=== PATIENT | female | born 1945 | race Caucasian/White ===

== ENCOUNTER → 2016-04-14 | Outpatient (CLI) | payer OTHER ==
[~2016-04-14] MED LIST: ATOR-26 PO; CRDCD300 PO; DILT-117 PO; EZET10TA63 PO; GLIM2TAB2 PO; HYZ/10015 PO; LEVO125T72 PO; METO1TAB69 PO; METO50TA16 PO; OXYB5TAB PO; SIMV40TA2 PO; SYN125 PO
[2016-04-14 12:25] LABS: BASO % 0.1 %; BASO ABS # 0.01 K/uL (0-0.2); COMPLETE YES; EOS % 2.5 %; HEMATOCRIT 40.7 % (37-47); IG% 0.3 %; LYMPH ABS # 1.59 K/uL (1.2-3.4); MEAN CELL VOLUME 86.4 fL (80-100); MEAN CORPUSCULAR HEMOGLOBIN 29.1 pg (25-34); MEAN CORPUSCULAR HGB CONC 33.7 g/dl (32-36); MEAN PLATELET VOLUME 9.6 fL (7.4-10.4); NEUT % 67.1 %; PLATELET COUNT 319 K/uL (130-400); RED BLOOD COUNT 4.71 M/uL (4.2-5.4); WHITE BLOOD COUNT 7.24 K/uL (4.8-10.8)
[2016-04-14 12:30] LABS: URINE APPEARANCE CLEAR (CLEAR); URINE BILIRUBIN NEG (NEG); URINE COLOR YELLOW; URINE EPITHELIAL CELL AUTO 20-30 /lpf (0-5); URINE NITRITE NEG (NEG); URINE PH 5.5 (4.5-7.5); URINE SPECIFIC GRAVITY 1.022 (1.000-1.030); UROBILINOGEN NEG (NEG)
[2016-04-14 12:39] LABS: ALT/SGPT 54 U/L (12-78); AST/SGOT 32 U/L (15-37); BLOOD UREA NITROGEN 26 mg/dl (7-18); BUN/CREATININE RATIO 20.3 (10-20); CALCIUM 9.7 mg/dl (8.5-10.1); CARBON DIOXIDE 27 mmol/L (21-32); CHLORIDE 102 mmol/L (98-107); CHOLESTEROL 145 mg/dl (0-200); GLUCOSE 152 mg/dl (70-99); POTASSIUM 3.7 mmol/L (3.5-5.1); SODIUM 138 mmol/L (136-145)
[2016-04-14 12:42] LABS: ESTIMATED AVERAGE GLUCOSE 160 mg/dl; HA1C FLAG Normal (Normal)
[2016-04-14 12:45] LABS: MANUAL MICROSCOPIC REQUIRED? NO; REVIEW REQ? NO
[2016-04-14 12:50] LABS: CHOLESTEROL/HDL RATIO 3.6; HDL CHOLESTEROL 40 mg/dl; LDL CHOLESTEROL CALCULATED 49 mg/dl; TRIGLYCERIDES 282 mg/dl (0-150); URIC ACID 5.6 mg/dl (2.6-7.2); VERY LOW DENSITY LIPOPROT CALC 56 mg/dl
== END | disposition home or self-care (01) ==
LOC: C.LABBFT 10:15
PROVIDERS: ATTEND Internal Medicine
DX: E11.9 Type 2 diabetes mellitus without complications (principal)

== ENCOUNTER 2016-05-09 11:58 | Emergency (ER) | payer OTHER ==
[~2016-05-09] VITALS: Ht 162.6 cm; Wt 72.0 kg
[~2016-05-09 11:58] MED LIST changes: -DILT-117 PO; -LEVO125T72 PO; -METO50TA16 PO; -SIMV40TA2 PO
[2016-05-09 12:03] VITALS: TEMP 36.6; Ht 162.6 cm; Wt 72.0 kg
[2016-05-09] MEDS ORDERED: LEVO125T72 PO (12:57)
[2016-05-09] MEDS ORDERED: SIMV40TA2 PO (12:57)
[2016-05-09] MEDS ORDERED: DILT-117 PO (12:57)
[2016-05-09] MEDS ORDERED: METO50TA16 PO (12:57)
--- NOTE | 2016-05-09 13:55 | DIAGNOSTIC IMAGING REPORT ---
ULTRASOUND LEFT LOWER EXTREMITY VENOUS CLINICAL HISTORY: Left thigh pain. COMPARISON STUDY: No priors. TECHNIQUE: Real-time, grayscale, and color Doppler sonography of the deep veins of the left lower extremity was performed from the inguinal crease to the calf. Compression and augmentation were utilized. FINDINGS: There is no sonographic evidence of deep venous thrombosis identified in the left lower extremity. The common femoral, superficial femoral, and popliteal veins are patent and normally compressible. The greater saphenous vein and the profunda femoris vein at the junction with the common femoral vein are clear. The visualized calf veins are patent. IMPRESSION: There is no sonographic evidence of deep venous thrombosis identified in the left lower extremity. Electronically signed by: Ishan Lynn M.D. 05/09/2016 1:53 PM Dictated Date/Time: 05/09/2016 1:53 PM
[2016-05-09 14:33] VITALS: BP 169/91; PULSE 57; O2SAT 97
--- NOTE | 2016-05-09 17:25 | EMERGENCY ROOM VISIT NOTE ---
History First contact with patient: 12:11 Chief Complaint: LEG PAIN,LEG INJURY Stated Complaint: LEFT LEG PAIN IN VEINS History of Present Illness The patient is a 70 year old white female who presents to the Emergency Room with complaints of left posterior leg pain that began yesterday. She denies any known injury. Pain extends from the proximal calf to the mid thigh. She is worried about a DVT. 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 She denies any redness, warmth, coolness, or swelling. No prior history of similar discomfort. No symptoms on the right leg. She denies any shortness of breath. She has had no recent airline travel or long trips. No treatment yet. No other complaints. Review of Systems REVIEW OF SYSTEM: HEENT: No dizziness, visual problems, hearing loss, or tinnitus. There is no difficulty swallowing and no oral lesions are present. LYMPH: No adenopathy. PULMONARY: No cough, shortness of breath, sputum production or hemoptysis. CARDIOVASCULAR: No chest pain, palpitations, shortness of breath or peripheral edema. GASTROINTESTINAL: No diarrhea, constipation, nausea, vomiting, or abdominal pain. GENITOURINARY: No dysuria, frequency, urgency or nocturia. NEUROLOGIC: No weakness, muscle tenderness, epilepsy or history of neurological problems. MUSCULOSKELETAL: No history of joint tenderness/swelling. Positive history of arthritis and arthralgias. SKIN: No rashes or lesions. ENDOCRINE: Positive history of diabetes and hypothyroidism Past Medical/Surgical History Previous surgeries: Vein stripping Medical history: Significant for osteoarthritis, hypertension, diabetes, hypothyroidism, incontinence Family History Noncontributory. Social History Smoking Status: Never Smoker Smokeless Tobacco Use: No Drug Use: none Marital Status: Housing Status: lives alone Occupation Status: retired Current/Historical Medications Scheduled Diltiazem Hcl Ext Rel (Tiazac), 300 MG PO DAILY Ezetimibe (Zetia), 10 MG PO DAILY Glimepiride (Glimepiride), 2 MG PO DAILY Hctz/Losartan (Hyzaar 25MG/100MG), 1 TAB PO DAILY Levothyroxine Sodium (Synthroid), 125 MCG PO DAILY Metoprolol Tartrate (Lopressor) (Lopressor), 50 MG PO BID Oxybutynin Chloride (Oxybutynin Chloride Er), 5 MG PO DAILY Simvastatin (Zocor), 40 MG PO QPM Allergies Coded Allergies: No Known Allergies (Unverified , 01/17/13) Physical Exam Vital Signs Date Time Temp Pulse Resp B/P Pulse Ox O2 Delivery O2 Flow Rate FiO2 05/09/16 14:33 57 18 169/91 97 Room Air 05/09/16 13:31 57 16 174/68 97 Room Air 05/09/16 12:03 36.6 59 20 187/96 96 Room Air Physical Exam Gen.: Well-developed, well-nourished, elderly white female, in no acute distress. Laying on a bed. Alert and oriented. Skin:Warm and dry with fair turgor. No rashes or lesions. No ecchymosis or erythema, specifically on the leg. It is not any more warm than the other side. The patient is not diaphoretic. No abrasions. Varicosities are present on the inner aspect of the left leg. Musculoskeletal: Patient has intact motor function to the toes, ankle, knee, and hip. No pain with Homans testing. She does have discomfort with palpation over the medial hamstring bundle, hamstring muscle belly, and popliteal fossa. Neurologic: Gross sensation is intact across the left leg by soft touch. Peripheral pulses are 2+. Medical Decision & Procedures ER Provider Diagnostic Interpretation: Ultrasound obtained today of the left lower extremity was read by radiology as negative for DVT. ED Course Patient was educated regarding today's findings. Conservative care measures were discussed. Ultrasound was obtained and was negative. Patient likely strained her hamstring. She may use warm moist compresses on the area as needed. Gentle stretching daily. Tylenol and ibuprofen every 6 hours as needed for discomfort. Follow-up with her PCP if symptoms are not improving for reevaluation and possible physical therapy referral. Return to the ED for any other concerns. Medical Decision Possibility of DVT, muscle strain, tendon injury, and radiculopathy from her lumbar spine were considered, among others. Impression Primary Impression: Leg pain, left Departure Information Dispostion Home / Self-Care Forms HOME CARE DOCUMENTATION FORM, TYLENOL USE, IMPORTANT VISIT INFORMATION Patient Instructions My [facility] [employer] Additional Instructions Gentle stretching daily Warm moist compresses to the hamstring several times per day may improve your comfort Tylenol every 6 hours as needed for discomfort Add ibuprofen 200 mg or 400 mg every 6 hours as needed, with food Follow-up with your PCP for physical therapy referral if symptoms persist Return to the ED for any other concerns
== END 2016-05-09 14:36 | disposition home or self-care (01) ==
LOC: C.EDB 11:59 → C.EDC 14:36
DX: M79.605 Pain in left leg (principal); E11.9 Type 2 diabetes mellitus without complications; I10 Essential (primary) hypertension; M19.90 Unspecified osteoarthritis, unspecified site; E03.9 Hypothyroidism, unspecified; Z98.890 Other specified postprocedural states; Z79.84 Long term (current) use of oral hypoglycemic drugs; Z79.899 Other long term (current) drug therapy

== ENCOUNTER → 2016-07-16 | Outpatient (CLI) | payer OTHER ==
[~2016-07-16] MED LIST changes: -ATOR-26 PO; -CRDCD300 PO; +DILT-117 PO; +LEVO125T72 PO; -METO1TAB69 PO; +METO50TA16 PO; +SIMV40TA2 PO; -SYN125 PO
[2016-07-16 11:17] LABS: ESTIMATED AVERAGE GLUCOSE 154 mg/dl; HA1C FLAG Normal (Normal)
== END | disposition home or self-care (01) ==
LOC: C.LAB1850 09:11
PROVIDERS: ATTEND Internal Medicine
DX: E11.9 Type 2 diabetes mellitus without complications (principal)

== ENCOUNTER → 2016-10-16 | Outpatient (CLI) | payer OTHER ==
[2016-10-16 12:16] LABS: BASO % 0.2 %; BASO ABS # 0.01 K/uL (0-0.2); COMPLETE YES; EOS % 3.5 %; HEMATOCRIT 42.3 % (37-47); IG% 0.2 %; LYMPH ABS # 1.36 K/uL (1.2-3.4); MEAN CELL VOLUME 89.6 fL (80-100); MEAN CORPUSCULAR HEMOGLOBIN 28.4 pg (25-34); MEAN CORPUSCULAR HGB CONC 31.7 g/dl (32-36); MEAN PLATELET VOLUME 9.8 fL (7.4-10.4); MONO % 9.4 %; NEUT % 61.7 %; PLATELET COUNT 281 K/uL (130-400); RED BLOOD COUNT 4.72 M/uL (4.2-5.4); WHITE BLOOD COUNT 5.45 K/uL (4.8-10.8)
[2016-10-16 12:37] LABS: ALT/SGPT 30 U/L (12-78); AST/SGOT 23 U/L (15-37); BLOOD UREA NITROGEN 21 mg/dl (7-18); BUN/CREATININE RATIO 17.7 (10-20); CALCIUM 10.2 mg/dl (8.5-10.1); CARBON DIOXIDE 28 mmol/L (21-32); CHLORIDE 106 mmol/L (98-107); CHOLESTEROL 164 mg/dl (0-200); GLUCOSE 137 mg/dl (70-99); POTASSIUM 3.9 mmol/L (3.5-5.1); SODIUM 141 mmol/L (136-145); TRIGLYCERIDES 264 mg/dl (0-150); VERY LOW DENSITY LIPOPROT CALC 53 mg/dl
[2016-10-16 12:48] LABS: CHOLESTEROL/HDL RATIO 3.6; HDL CHOLESTEROL 46 mg/dl; LDL CHOLESTEROL CALCULATED 65 mg/dl
[2016-10-16 12:53] LABS: ESTIMATED AVERAGE GLUCOSE 154 mg/dl; HA1C FLAG Normal (Normal)
== END | disposition home or self-care (01) ==
LOC: C.LABBFT 09:38
PROVIDERS: ATTEND Physician Assistant
DX: I10 Essential (primary) hypertension (principal); E78.00 Pure hypercholesterolemia, unspecified; E11.9 Type 2 diabetes mellitus without complications

== ENCOUNTER → 2016-10-27 | Outpatient (CLI) | payer OTHER ==
--- NOTE | 2016-10-28 14:22 | MAMMOGRAPHY REPORT ---
BILATERAL DIGITAL SCREENING MAMMOGRAM WITH CAD: 10/27/2016 CLINICAL HISTORY: Routine screening. Patient has no complaints. TECHNIQUE: Bilateral CC and MLO views were obtained. Current study was also evaluated with a Compute r Aided Detection (CAD) system. COMPARISON: Comparison is made to exams dated: 10/24/2015 mammogram, 10/18/2014 mammogram, 10/17/2013 mamm ogram, 10/04/2012 mammogram, 09/26/2010 mammogram, and 09/24/2009 mammogram - [facility] er. BREAST COMPOSITION: The tissue of both breasts is heterogeneously dense, which may obscure small mas ses. FINDINGS: There are diffuse bilateral benign rim calcifications and stable groupings of benign-appear ing round and punctate microcalcifications. Minimal vascular calcification in the breasts. Stable p ostsurgical changes in the right breast. No new suspicious mass, architectural distortion or cluster of microcalcifications is seen. IMPRESSION: ACR BI-RADS CATEGORY 1: NEGATIVE There is no mammographic evidence of malignancy. A 1 year screening mammogram is recommended. The pa tient will receive written notification of the results. Approximately 10% of breast cancers are not detected with mammography. A negative mammographic report should not delay biopsy if a clinically suggestive mass is present. Laureen Arora M.D. ay/:10/27/2016 16:41:33 Dot Etcher Apprentice: Maricruz GOODWIN(Fredy)(Kyler), [facility] letter sent: Normal 1/2 BI-RADS Code: ACR BI-RADS Category 1: Negative
== END | disposition home or self-care (01) ==
LOC: C.MAMM 11:43
PROVIDERS: ATTEND Internal Medicine
DX: Z12.31 Encounter for screening mammogram for malignant neoplasm of breast (principal)

== ENCOUNTER → 2017-01-20 | Outpatient (CLI) | payer OTHER ==
--- NOTE | 2017-01-20 10:18 | DIAGNOSTIC IMAGING REPORT ---
CHEST 2 VIEWS ROUTINE HISTORY: 71 years-old Female D86.9 Sarcoidosisto be done in 6 months at time of next appt.RAD follow-up study in a patient with cough and sarcoidosis COMPARISON: Chest radiographs 08/01/2015, chest CT 01/30/2015 TECHNIQUE: PA and lateral views of the chest FINDINGS: Cardiac silhouette is within normal limits. Linear left perihilar opacity is unchanged. Lateral left midlung linear opacity compatible with scarring/atelectasis is unchanged. There is improvement of the previously noted reticulonodular opacities which are seen probably within the perihilar predominant distribution. No pneumothorax or pleural effusion. Again seen are alveolar opacities of the left lower lobe and lingula adjacent to the major fissure. IMPRESSION: Persistent mildly improved bilateral reticulonodular opacities with persistent subtle alveolar opacities of the left upper lobe and lingula. The above report was generated using voice recognition software. It may contain grammatical, syntax or spelling errors. Electronically signed by: Shen Santiago M.D. 01/20/2017 10:17 AM Dictated Date/Time: 01/20/2017 10:05 AM
[2017-01-20 10:22] LABS: ESTIMATED AVERAGE GLUCOSE 157 mg/dl; HA1C FLAG Normal (Normal)
== END | disposition home or self-care (01) ==
LOC: C.RAD1850 09:27
PROVIDERS: ATTEND Internal Medicine Pulmonary Disease
DX: D56.9 Thalassemia, unspecified (principal); E11.9 Type 2 diabetes mellitus without complications; D86.9 Sarcoidosis, unspecified

== ENCOUNTER → 2017-04-28 | Outpatient (CLI) | payer OTHER | END | disposition home or self-care (01) | LOC: C.PATHSPEC 18:01 | PROVIDERS: ATTEND Dermatology | DX: L82.1 Other seborrheic keratosis (principal) ==

== ENCOUNTER → 2017-06-16 | Outpatient (CLI) | payer OTHER ==
[2017-06-16 12:13] LABS: BASO % 0.2 %; BASO ABS # 0.01 K/uL (0-0.2); EOS % 3.1 %; EOS ABS # 0.19 K/uL (0-0.5); HEMATOCRIT 42.6 % (37-47); IG# 0.01 K/uL (0.00-0.02); LYMPH % 23.3 %; LYMPH ABS # 1.43 K/uL (1.2-3.4); MEAN CELL VOLUME 88.2 fL (80-100); MEAN CORPUSCULAR HGB CONC 32.9 g/dl (32-36); MEAN PLATELET VOLUME 9.6 fL (7.4-10.4); MONO ABS # 0.43 K/uL (0.11-0.59); NEUT % 66.2 %; NEUT ABS # 4.07 K/uL (1.4-6.5); PLATELET COUNT 319 K/uL (130-400); RED CELL DISTRIBUTION WIDTH CV 14.3 % (11.5-14.5); RED CELL DISTRIBUTION WIDTH SD 46.4 fL (36.4-46.3); WHITE BLOOD COUNT 6.14 K/uL (4.8-10.8)
[2017-06-16 12:18] LABS: ALT/SGPT 30 U/L (12-78); AST/SGOT 25 U/L (15-37); BLOOD UREA NITROGEN 19 mg/dl (7-18); CALCIUM 9.8 mg/dl (8.5-10.1); CARBON DIOXIDE 29 mmol/L (21-32); CHOLESTEROL 191 mg/dl (0-200); GLUCOSE 129 mg/dl (70-99); POTASSIUM 3.6 mmol/L (3.5-5.1); SODIUM 140 mmol/L (136-145)
[2017-06-16 12:28] LABS: LDL CHOLESTEROL CALCULATED 82 mg/dl
== END | disposition home or self-care (01) ==
LOC: C.LAB1850 09:47
PROVIDERS: ATTEND Internal Medicine
DX: E11.9 Type 2 diabetes mellitus without complications (principal)